=== PATIENT | female | born 1965 ===

== ENCOUNTER 2017-09-14 11:12 | Inpatient (IN) | payer BC ==
[2017-09-14] MEDS ORDERED: oxyCODONE HCL 5 MG TABLET PO PRN (12:11)
[2017-09-14] MEDS ORDERED: ACETAMINOPHEN 325 MG TABLET (FP) PO PRN (12:11)
[2017-09-14] MEDS ORDERED: morphine CARPU-JECT 10 MG/1 ML DISP.SYRIN IVPB PRN (12:11)
[2017-09-14] MEDS ORDERED: ONDANSETRON 4 MG/2 ML VIAL IVPUSH PRN ×2 (12:11→18:19)
[2017-09-14] MEDS ORDERED: D5-1/2NS+20 MEQ KCL - 20 MEQ/1,000 ML INFUS.BAG IV SCH (12:15)
[2017-09-14 12:31] VITALS: BMI 33.8
[2017-09-14] MEDS ORDERED: IBUPROFEN 800 MG/8 ML IJ IVPB ONE (12:38)
[2017-09-14] MEDS ORDERED: DESFLURANE GAS 240 ML BOTTLE IH ONE (12:38)
[2017-09-14] MEDS ORDERED: ceFAZolin SODIUM 1 GM VIAL ONE ×2 (12:39→13:52)
[2017-09-14] MEDS ORDERED: LIDOCAINE 1%/EPI 1:100000 (20 ML MULTI DOSE VIAL) ONE (12:42)
[2017-09-14] MEDS ORDERED: fentaNYL CITRATE 250 MCG/5 ML VIAL ONE ×3 (13:16→16:12)
[2017-09-14] MEDS ORDERED: PROPOFOL 20 ML ONE ×2 (13:16)
[2017-09-14] MEDS ORDERED: ROCURONIUM BROMIDE 50 MG/5 ML VIAL ONE ×4 (13:17→15:45)
[2017-09-14] MEDS ORDERED: MIDAZOLAM HCL 2 MG/2 ML SINGLE DOSE VIAL ONE (13:17)
[2017-09-14] MEDS ORDERED: LIDOCAINE HCL 2% JELLY (5 ML/TUBE) ONE (13:26)
[2017-09-14] MEDS ORDERED: DEXAMETHASONE SOD PHOSPHATE 4 MG/1 ML VIAL ONE ×2 (13:28→14:30)
[2017-09-14] MEDS ORDERED: BUPIVACAINE HCL/PF 0.25% (2.5MG/ML) 10 ML VIAL ONE (13:28)
[2017-09-14] MEDS ORDERED: ceFAZolin SODIUM 1 GM VIAL IVPB ONE (13:51)
[2017-09-14] MEDS ORDERED: LIDOCAINE 1%/EPI 1:100000 (50 ML MULTI DOSE VIAL) INF ONE ×2 (14:04)
--- NOTE | 2017-09-14 14:53 | HP ---
DATE OF ADMISSION: 09/14/2017 HISTORY: A 52-year-old woman admitted to the hospital for open bilateral component separation and repair of complex chronically incarcerated abdominal wall hernia. Patient will undergo simultaneous abdominoplasty. Patient had undergone initial placement of Lap-Band for weight loss 6 years ago. After placement of the band, she developed a ventral hernia in the upper abdomen. The band was removed several years ago, at which time, the hernia had become already larger in size. More recently, the patient had undergone a gastric sleeve resection and has lost an additional 65 pounds. However, since that surgery, she has now developed a very large, protuberant hernia which is significantly larger in size, progressively more uncomfortable, and chronically incarcerated. No underlying GI, , or respiratory complaints to suggest further predisposition to hernia formation. PAST MEDICAL HISTORY: Significant for hypercholesterolemia. Otherwise, there is no known history of heart disease, diabetes, respiratory or hepatic insufficiency. PAST SURGICAL HISTORY: As above. The patient has also had breast surgery. REGULAR MEDICATIONS: Anti-cholesterolemics. ALLERGIES: None known. SOCIAL HISTORY: Negative tobacco. Patient did smoke up until July 2014. Positive social alcohol/not quantified. FAMILY HISTORY: Mother with history of diabetes, atrial fibrillation, COPD, and asthma. REVIEW OF SYSTEMS: Otherwise, nil. PHYSICAL EXAMINATION: Abdomen: On examination, the patient has a large, protuberant hernia involving the entire upper aspect of the abdomen with bowel clearly living outside the coelomic cavity and the subcutaneous space. In the supine position, the hernia is not reducible. The hernia stems from the xiphoid process to the level in and around and just below the umbilicus. There are multiple scars in the upper abdomen consistent with prior interventions. Patient with a large amount of redundant abdominal wall skin and subcutaneous tissue, clearly exaggerated by her weight loss from her bariatric procedure. IMPRESSION: Complex chronically-incarcerated ventral/incisional abdominal wall hernia. PLAN: Open bilateral component separation, repair of complex chronically incarcerated ventral/incisional abdominal wall hernia with mesh. Patient to undergo simultaneous abdominoplasty as per the plastic surgical service. Indications, alternatives, possible complications related to the hernia repair reviewed. Consent obtained. Issues concerning placement of mesh reviewed as well with all those potential complications. Consent obtained. Patient was seen preoperatively by her PMD. Please refer to those notes for those medical details. For details concerning the plastic surgical aspects of the case, please refer to Dr. Derrek Germain's history and physical. DAREK HENDERSON M.D. [id number] MTDD
[2017-09-14] MEDS ORDERED: NEOSTIGMINE METHYLSULFATE 0.5 MG/ML - 10 ML MDV ONE (17:52)
[2017-09-14] MEDS ORDERED: GLYCOPYRROLATE 0.2 MG/1 ML VIAL ONE ×2 (17:52→17:53)
[2017-09-14] MEDS ORDERED: PROMETHAZINE HCL 25 MG/1 ML VIAL IVPUSH PRN (18:19)
--- NOTE | 2017-09-14 18:29 | OP ---
Operative Note - Note: Operative Date: 09/14/17 Pre-Operative Diagnosis: Abodominal hernia with excess skin and tissue Operation: Abdominoplasty s/p hernia repair Findings: Abdominal hernia and excess skin and tissue Implants: none Post-Operative Diagnosis: Same as Pre-op Surgeon: Alfonso Germain Inbound Customer Service Representative: Radha Painting Anesthesiologist/CORPORATE STATISTICAL FINANCIAL ANALYST: Rowdy Herrera Anesthesia: MAC Specimens Removed: Hernia sac, abdominal skin and tissue Estimated Blood Loss (mls): 200 Drains & Tubes with Location: two 19 spanish drains Operative Report Dictated: Yes
[2017-09-14] MEDS ORDERED: LACTATED RINGERS SOLUTION 1,000 ML IV SCH (18:30)
--- NOTE | 2017-09-14 20:24 | OP ---
DATE OF OPERATION: 09/14/2017 SURGEON: Jocelyne Germain MD BUTTERMAKER CONTINUOUS CHURN SURGEON: Radha Painting PA-C PREOPERATIVE DIAGNOSIS: Acquired abdominal deformity status post complex hernia repair. POSTOPERATIVE DIAGNOSIS: Acquired abdominal deformity status post complex hernia repair. OPERATIVE PROCEDURE: Abdominoplasty for hernia repair and repair of abdominal wall defect. OPERATIVE INDICATIONS: Patient is a woman who was brought to the operating room by Dr. Adrian Murrell and Dr. Rodrigo Renteria for complex repair of a large ventral hernia after gastric bypass surgery. Patient had a large mass and defect above the umbilicus and just adjacent to it. The risks and benefits of surgical versus nonsurgical alternatives as well as the material complications of complex abdominoplasty closure and excision of subcutaneous tissues for exposure and repair were discussed with the patient on multiple occasions preoperatively. She agreed to the planned procedure. OPERATIVE PROCEDURE IN DETAIL: Patient was taken to the operating room and after being placed supine on the operating room table, the markings which had been made in a standing position preoperatively in the holding area with the patient's knowledge were re-outlined on the abdominal wall with an excision of elliptical block of skin from the umbilicus down to the pubis. This procedure was in conjunction with Dr. Murrell and Dr. Renteria, and their portions will be dictated under separate cover. I began the operation by prepping and draping the patient in the usual fashion for abdominal surgery. Sterile drapes were placed. Timeout was called. The elliptical-shaped incision was then injected with 1% local lidocaine anesthesia with 1:100,000 epinephrine. A large ventral hernia was seen bulging just adjacent to it above the umbilicus. An incision was made under optical magnification of 2.5 power down through the skin to the subcutaneous tissue to the lower abdomen according to the pattern. This was carried down to the anterior rectus fascia on both sides of the midline. Then, a block of tissue was excised after circumscribing the umbilicus and dropping it back. The entire lower abdominal skin and subcutaneous tissue was excised and sent for pathologic diagnosis. At this point, dissection was carried out around the umbilical area, exposing some parts of the hernia sac. The lateral elevation of the rectus tissue was carried out in order for the surgeons to carry out their portion of the operation. At this point, Dr. Murrell and Dr. Renteria performed complex abdominal wall reconstruction with mesh and component separation. Again, their portion will be dictated under separate cover. After completion of the repair of the ventral hernia, I continued my portion of the operation by imbricating the abdominal wall at the central portion, reinforcing and covering the overall repair in the midline. From the xiphoid down to the umbilicus and then from the umbilicus down to the pubis, a running suture of 3-0 V-Loc suture was placed in 2-layer fashion for extra repair of the abdominal wall and to reinforce the fascia. The patient was then placed in the semi-[place] sitting position. Skin and subcutaneous tissue showed poor viability because the overlying tissue that was over the hernia sac was thin and mostly nonviable. Patient was placed into the sitting position. The abdominal wall was brought down to its new anatomic position, and another block of skin and subcutaneous tissue was excised according to what tension allowed at this point. After the skin was removed and hemostasis was meticulously obtained, two 19 Scout drains were brought out the lateral portion through separate stab wounds of the very long lower abdominal scar measuring approximately 36 cm in length. At this point, after hemostasis and copious irrigation, the wound was repaired in layers. The deep layer was closed with 2-0 Vicryl sutures in the Camilla fascia, 3-0 V-Loc in a running fashion; a second layer in the Camilla fascia, 3-0 Biosyn in a deep dermal fashion and 4-0 V-Loc in a subcuticular fashion for a 4-layer closure. The umbilicus, which had been tacked down to the fascia, was now exposed by incising the skin and bringing the new umbilical site out through the abdominal wall. This was then sutured using 3-0 Biosyn suture for the deep tissue and 5-0 plain catgut suture on the skin. Prineo dressing was placed over the lower abdominal wound. All wounds were dressed sterilely with these dressings. The She was awakened, extubated, and transferred to the recovery room in satisfactory condition and tolerated the procedure well. JOCELYNE GERMAIN M.D. [id number]
[2017-09-14] MEDS: morphine SULFATE 4 MG/ML VIAL IVPB PRN ×2 (20:57→23:55)
[2017-09-15] MEDS: morphine SULFATE 4 MG/ML VIAL IVPB PRN ×2 (03:04→06:11)
[2017-09-15 06:50] VITALS: PULSE 87
--- NOTE | 2017-09-15 08:20 | OP ---
DATE OF OPERATION: 09/14/2017 PREOPERATIVE DIAGNOSIS: Complex, chronically incarcerated ventral/incisional abdominal wall hernia. POSTOPERATIVE DIAGNOSIS: Complex, chronically incarcerated ventral/incisional abdominal wall hernia. PROCEDURE PERFORMED: Open bilateral component separation, repair of complex, chronically incarcerated ventral/incisional abdominal wall hernia with mesh. SURGEON: Darek Murrell MD HAND CHAIN MAKER: Rodrigo Renteria MD ANESTHESIA: Shelia Ortez MD (general) INDICATIONS: This is a 52-year-old woman who has suffered with morbid obesity and has had several surgeries for such. She had initial Lap-Band placement approximately 6 years ago. She subsequently went on to develop a hernia. Her band was ultimately removed and her hernia continued to progress in size. More recently, she had a gastric sleeve resection and lost 65 additional pounds. However, her hernia has been progressively enlarging and she presents now with a very complex, chronically incarcerated ventral hernia, for repair. The patient was seen preoperatively by the plastic surgical service as well. The patient to undergo abdominoplasty as well as correction of her large diastasis recti as per the plastic surgical service, while under anesthesia. The indications, alternatives and possible complications related to the component separation and hernia repair with mesh reviewed with the patient extensively. Consent was obtained. DESCRIPTION OF PROCEDURE: With the patient in the supine position and after general anesthesia, the abdomen had been prepped and draped by the plastic surgical service. The abdominal skin and subcutaneous tissue were mobilized by the plastic surgical service beginning at the level of the pubis and mobilized up to the level of the costal margin. At that juncture, the large hernia defect was easily identified. The large sac was incised and ultimately a good portion of the sac was removed and sent as specimen labeled "portion of ventral hernia sac." Lysis of adhesions ensued, freeing some of the bowel loops which had been trapped near the large hernia ring. First directing our attention to the right side, the posterior right rectus sheath was from the overlying rectus muscle fibers using electrocautery. The retrorectus space was developed on the right side using cautery dissection. The dissection proceeded in the inferior, lateral and superior directions, ultimately arriving at the junction of the rectus with the external oblique and transversus musculature. Separation of the external oblique musculature from the underlying transversus ensued in the plane of dissection stemming from the retrorectus space, proceeded again laterally, inferiorly and superiorly in all directions. Now directing our attention to the contralateral side, the left posterior rectus sheath was from the overlying left rectus muscle fibers. Dissection again was carried out in the inferior, lateral and superior directions. The left oblique musculature was from the underlying left transversus muscle, as described above for the contralateral side. Again, retrorectus dissection was carried out inferiorly, laterally and superiorly. The posterior midline was then recreating, approximating the posterior sheath using a continuous 2-0 V-Loc suture. A composite mesh was made at the operating table, suturing a piece of [employer]ien Versatex monofilament mesh (30 x 30 cm) to a piece of AYALA Bio OviTex mesh measuring 16 x 20 cm in size. This was accomplished using circumferential interrupted 3-0 Vicryl sutures. After the mesh was soaked in saline, the mesh was placed in the retrorectus space with the AYALA Bio side down. The mesh was fitted throughout the retrorectus space and the space created by the dissection of the separation of the external oblique musculature and transversus muscles bilaterally. Using an AbsorbaTacker and counter palpation, the mesh was affixed circumferentially at the periphery. After adequate hemostasis and irrigation, the anterior rectus sheath was then closed using a continuous number 1 PDS suture, beginning at each end of the wound, with the suture tied at the wound midpoint. At this juncture, the plastic surgical service resumed their portion of the operation. For details concerning the plastic surgical operative details, please see Dr. Derrek Germain's operative note. The abdominal wall wound is to be closed by the plastic surgical service, as well as drain placement. At the end of the general surgical procedure, blood loss was minimal. DAREK MURRELL M.D. [id number]
--- NOTE | 2017-09-15 08:46 | PN ---
Progress Note (short form) - Note Progress Note: Post op day#1.S/P Bilateral inguinal hernia repair and Abdominoplast under Ga uneventful.Patient stable and c/o some pain for which she is on medication.No any anesthesia related problem.Patient Dc from the anesthesia care.
[2017-09-15] MEDS: oxyCODONE HCL 5 MG TABLET PO PRN ×2 (09:27→13:24)
[2017-09-15] MEDS ORDERED: PANTOPRAZOLE SODIUM 40 MG VIAL IVPUSH SCH (10:00)
[2017-09-15] MEDS ORDERED: ENOXAPARIN NA (PORCINE) 40 MG/0.4 ML DISP.SYRIN SQ SCH (10:00)
[2017-09-15 11:45] VITALS: BP 120/58; TEMP 98.2
--- NOTE | 2017-09-15 14:29 | DS ---
DATE OF ADMISSION: 09/14/2017 DATE OF DISCHARGE: 09/15/2017 ADMITTING DIAGNOSIS: Complex, incarcerated incisional hernia with pre-existing hyperlipidemia. DISCHARGE DIAGNOSIS: Complex, incarcerated incisional hernia with pre-existing hyperlipidemia. BRIEF HISTORY: This is a 52-year-old female who presented to [facility] for surgical management of a complex, incarcerated incisional hernia. She underwent repair of this hernia with mesh on September 14, utilizing myofascial release and component separation. She also underwent an abdominoplasty. The hernia repair was done by Dr. Adrian Murrell, and the abdominoplasty was done by Dr. Germain. Please reference operative report for more details. She was admitted, received narcotic pain medication. She is being discharged home today, September 15. She is ambulating and voiding. She is tolerating diet. She is also having pain well controlled with oral narcotics. She will go home with a prescription for Percocet which she will take as needed for pain. She will go home with a Dwight-Johnson drain which she will empty and record the amounts. She has an abdominal binder, and her dressing is in place. She will follow with Dr. Germain regarding care of her wound and her drains. She will follow with Dr. Murrell in approximately 2 weeks for a postoperative check regarding her hernia. She will resume all of her home medications. She is okay to sponge bathe. She will not lift anything more than 20 pounds. She is okay to drive when she feels safe to do so. She can walk. She can climb stairs. She is on a regular diet. DO SHAYY MARTEL/[id number]
[2017-09-15] MEDS ORDERED: ROSUVASTATIN CA 10 MG TABLET (FP) PO SCH (22:00)
--- NOTE | 2017-09-16 16:08 | PATH ---
Surgical Pathology Report Patient Name: NIDA LUIS [facility]. Rec. #: [id number] /Age/Gender: 1965 (Age: 52) / F Account: [id number] Location: AMBULATORY SURG Taken: 09/14/2017 Received: 09/15/2017 Reported: 09/16/2017 Physicians: Maximilian Paulino Specimen(s) Received A: HERNIA SAC B: ABDOMINAL SKIN AND TISSUE Clinical History Complex chronically incarcerated ventral/incisional abdominal wall hernia Final Diagnosis A. HERNIA SAC, HERNIA REPAIR: FIBROMEMBRANOUS TISSUE AND FIBROADIPOSE TISSUE CONSISTENT WITH HERNIA SAC AND CONTENTS. B. ABDOMINAL SKIN AND TISSUE, ABDOMINOPLASTY: UNREMARKABLE SKIN AND FIBROADIPOSE TISSUE. MACROSCOPIC DIAGNOSIS. Electronically Signed Sharmin Velez M.D. Gross Description A. Received in formalin labeled "hernia sac," is a 13.0 x 13.0 x 4.5 cm portion of ocampo-brown, thick fibromembranous tissue with attached yellow, lobulated adipose tissue. Sectioning reveals a 1.7 cm in length portion of clear tubing within the specimen. Particle Board Supervisor sections are submitted in 2 cassettes. B. Received in formalin labeled "abdominal skin and tissue," is a 1753 g, 47.0 x 18.0 x 3.5 cm aggregate of multiple irregular, unoriented portions of diehl, unremarkable skin with underlying soft tissue. No epidermal lesions are identified. Sectioning reveals unremarkable yellow, lobulated adipose tissue. No sections are submitted, gross only. /09/15/2017 saudi09/14/2017
== END 2017-09-15 15:17 | disposition home or self-care (01) | DRG 355 ==
LOC: JASUSAT 11:12 → JSAMEDAYSX 12:11 → J8W 20:25
PROVIDERS: ADMIT Surgery; ATTEND Surgery
PROC: 0WUF0JZ Supplement Abdominal Wall with Synthetic Substitute, Open Approach (ICD-10-PCS; principal; 2017-09-14 12:30)
PROC: 0JB80ZZ Excision of Abdomen Subcutaneous Tissue and Fascia, Open Approach (ICD-10-PCS; 2017-09-14 12:30)
DX: K43.0 Incisional hernia with obstruction, without gangrene (principal); M95.8 Other specified acquired deformities of musculoskeletal system; E78.5 Hyperlipidemia, unspecified
CPT/HCPCS: 84703; 88302-TC; 88305-TC; 94010; 94760